=== PATIENT | female | born 1965 | race Hispanic/Latino ===

== ENCOUNTER → 2018-01-26 | Day surgery (SDC) | payer BC ==
[~2018-01-26] MED LIST: AMLODIPINE BESYL5 MG PO; ASPIRIN81 MG; BP MED PO; COUMADIN3 MG PO; FENTANYL CITRATE/PF 100MCG/2 ML INJ ONE; MIDAZOLAM HCL 2 MG/2 ML VIAL ONE; PROPOFOL IV EMULSION 10 MG/ML 20 ML VIAL ONE; RYBIX ODT50 MG; SIMVASTATIN20 MG PO; ZANTAC; ZYRTEC
--- NOTE | 2018-01-26 14:15 | Operative Report ---
DATE OF PROCEDURE: January 26, 2018 REFERRING PHYSICIAN: Dr. Dodie Cornejo. PROCEDURE PERFORMED: Esophagogastroduodenoscopy with biopsies. INDICATIONS FOR ESOPHAGOGASTRODUODENOSCOPY: Acid reflux. MEDICATION: Patient was done under MAC. Please see anesthesiologist's note. PROCEDURE: With patient in left lateral decubitus position the flexible fiberoptic Olympus gastroscope was introduced into the esophagus under direct visualization without any difficulty. There was some patchy erythema noted in distal esophagus. The scope was then advanced with ease into the stomach, traversing a moderate-size hiatal hernia measured approximately 4 cm. The mucosa overlying the antrum in the body revealed some patchy erythema and mild to moderate edema and biopsies were obtained and sent to stain for H. pylori. There were some nodules in the gastric antrum and those were biopsied. Also there were some hyperplastic appearing polyps in the body, some were partially excised with cold biopsy forceps. Pylorus appeared to be of normal contour and shape. Was intubated with ease and the scope was advanced all the way to the 2nd portion of the duodenum. The scope was then withdrawn slowly. Mucosa overlying the proximal 2nd portion and the duodenal bulb appeared to be within normal limits. The scope was then withdrawn back into the stomach and retroflexed and mucosa overlying the fundus appeared to be within normal limits. The previously described hiatal hernia was also noted in the retroflexed position. The scope was then straightened out. The stomach was decompressed. The scope subsequently withdrawn. Patient tolerated the procedure well. IMPRESSION 1. Distal esophagitis. 2. Moderate-size hiatal hernia. 3. Gastritis biopsied. Biopsy sent to stain for H. pylori. 4. Gastric nodules, antrum biopsied. 5. Gastric polyps body, some partially excised with cold biopsy forceps. PLAN: Follow up histology. Initiate Protonix 40 mg one p.o. q. am a.c. Job#: [id number] DG cc:DODIE CORNEJO MD
== END | disposition home or self-care (01) ==
LOC: ENDO 11:05
PROVIDERS: ATTEND Internal Medicine Gastroenterology
DX: K21.9 Gastro-esophageal reflux disease without esophagitis (principal); K31.7 Polyp of stomach and duodenum; K29.70 Gastritis, unspecified, without bleeding; K20.9 Esophagitis, unspecified; K44.9 Diaphragmatic hernia without obstruction or gangrene; K31.89 Other diseases of stomach and duodenum; I10 Essential (primary) hypertension; Z01.810 Encounter for preprocedural cardiovascular examination; Z79.82 Long term (current) use of aspirin; Z68.34 Body mass index [BMI] 34.0-34.9, adult; Z86.718 Personal history of other venous thrombosis and embolism
CPT/HCPCS: 43239; 93005; J2250